=== PATIENT | female | born 1950 | race African-American/Black ===

== ENCOUNTER → 2017-11-16 | Outpatient (CLI) | payer OTHER | END | disposition home or self-care (01) | LOC: PCVCIMAG 13:52 | DX: I21.4 Non-ST elevation (NSTEMI) myocardial infarction (principal); I25.10 Atherosclerotic heart disease of native coronary artery without angina pectoris; I10 Essential (primary) hypertension; E78.00 Pure hypercholesterolemia, unspecified; I42.9 Cardiomyopathy, unspecified; I08.1 Rheumatic disorders of both mitral and tricuspid valves; Z87.891 Personal history of nicotine dependence; Z79.899 Other long term (current) drug therapy | CPT/HCPCS: 80061; 93005; 93306; G0463 ==

== ENCOUNTER → 2018-03-14 | Outpatient (CLI) | payer OTHER ==
--- NOTE | 2018-03-14 14:13 | PCVCIMAG ---
APPROVED REPORT Study performed: 03/14/2018 11:37:19 Exam: Stress Echocardiogram Indication: CAD s/p AR,PCI Patient Location: Echo lab Stress Nurse: Syeda Morocho RN Room #: 2 Status: routine Ht: 5 ft 3 in HR: 58 bpm BP: 128/86 mmHg Rhythm: Sinus Bradycardia Medical History Medical History: CAD s/p AR,stent,mvp,htn Medications: Metoprolol Cardiac Risk Factors: HTN Previous Cardiac Procedures: PCI Pretest Chest Pain Characteristics: No chest pain Exercise History: Physically active Procedure The patient underwent an Exercise Stress Test using the Ivania Protocol. Blood pressure, heart rate, and EKG were monitored. An Echocardiogram was performed by vending machine technician in four stages in quad fashion. At peak stress, four selected images were obtained and placed side by side with resting images for comparison. Stress Test Details Stress Test: Exercise stress testing was performed using a Ivania protocol. HR Resting HR: 58 bpmMax Heart Rate (APMHR): 153 bpm Max HR Achieved: 136 bpmTarget HR (85% APMHR): 130 bpm % of APMHR: 88 Recovery HR: 66 bpm HR response to stress: Normal HR response to stress BP Resting BP: 128/86 mmHg Max BP: 190/96 mmHg Recovery BP: 154/86 mmHg ECG Resting ECG: Sinus Bradycardia Stress ECG: Sinus Rhythm, NSSTT changes Arrhythmia: PVCs,PACs at peak exercise Recovery ECG: Sinus Rhythm Recovery ST Change: Non-ischemic Recovery Arrhythmia: occasional PVCs,PACs Clinical Reason for Termination: Maximal effort Stress Symptoms: fatigue,dyspnea Exercise duration: 7 min 24 sec Highest Stage Achieved: Stage 3: 3.4 mph at 14% grade. Exercise capacity: 10.1 METs Overall Exercise Capacity for Age: Average Scale: Active Angina Score: None No complications. Stress ECG Conclusion The patient exercised according to the IVANIA protocol for 7:24 mins; achieving a work level of 10.1 METS. The resting heart rate of 58 bpm cesar to a maximum heart rate of 136 bpm. This value represent 88% of the maximal, age-predicted heart rate. The resting blood pressure of 128/86 mmHg, cesar to a maximum blood pressure of 190/96mmHg. The exercise test was stopped due to fatigue . Pre-Stress Echo The resting Echocardiogram showed normal left ventricular contractility with an estimated Ejection Fraction of about 55-60%. Normal wall motion in all segments on baseline images. Post-Stress Echo The stress Echocardiogram showed normal left ventricular contractility with an estimated Ejection Fraction of about 65-70%. Normal augmentation of wall motion in all segments on post stress images. Clinical No clinical or ECG evidence for ischemia. Conclusion Clinical Response: Non-ischemic Exercise Capacity: Average Stress ECG Response: Non-ischemic Stress Echo Images: Non-ischemic No clinical, EKG or echocardiographic evidence for ischemia. No echocardiographic evidence for exercise induced ischemia. Normal stress echocardiogram with maximal exercise stress. <Conclusion> No clinical, EKG or echocardiographic evidence for ischemia. No echocardiographic evidence for exercise induced ischemia. Normal stress echocardiogram with maximal exercise stress.
== END | disposition home or self-care (01) ==
LOC: PCVCIMAG 15:43
PROVIDERS: ATTEND Internal Medicine Cardiovascular Disease
DX: I25.10 Atherosclerotic heart disease of native coronary artery without angina pectoris (principal); I10 Essential (primary) hypertension; I21.4 Non-ST elevation (NSTEMI) myocardial infarction; I34.1 Nonrheumatic mitral (valve) prolapse
CPT/HCPCS: 93325; 93351

== ENCOUNTER → 2018-10-20 | Outpatient (CLI) | payer OTHER | END | disposition home or self-care (01) | LOC: PCVCCLINIC 14:14 | PROVIDERS: ATTEND Internal Medicine Cardiovascular Disease | DX: I25.10 Atherosclerotic heart disease of native coronary artery without angina pectoris (principal); I10 Essential (primary) hypertension; I21.4 Non-ST elevation (NSTEMI) myocardial infarction; E78.00 Pure hypercholesterolemia, unspecified | CPT/HCPCS: 36415; 80061; 93005; G0463 ==

== ENCOUNTER → 2019-04-30 | Outpatient (CLI) | payer OTHER ==
--- NOTE | 2019-05-01 13:29 | PCVCIMAG ---
APPROVED REPORT Study performed: 04/30/2019 13:51:33 Exam: Stress Echocardiogram Indication: CAD, Stent Patient Location: Echo lab Stress Nurse: Brandi Pastor RN Status: routine Ht: 5 ft 3 in HR: 82 bpm BP: 140/80 mmHg Rhythm: NSR Medical History Medical History: CAD s/p stent, , Hyperlipidemia, HTN Procedure The patient underwent an Exercise Stress Test using the Rian Protocol. Blood pressure, heart rate, and EKG were monitored. An Echocardiogram was performed by lubrication technician in four stages in quad fashion. At peak stress, four selected images were obtained and placed side by side with resting images for comparison. Stress Test Details Stress Test: Exercise stress testing was performed using a Rian protocol. HR Resting HR: 82 bpmMax Heart Rate (APMHR): 152 bpm Max HR Achieved: 151 bpmTarget HR (85% APMHR): 129 bpm % of APMHR: 99 Recovery HR: 90 bpm HR response to stress: Normal HR response to stress BP Resting BP: 140/80 mmHg Max BP: 246/88 mmHg Recovery BP: 162/80 mmHg BP response to stress: Normal blood pressure response to stress. ECG Resting ECG: Sinus Rhythm Stress ECG: Sinus Rhythm Arrhythmia: VPC's Recovery ECG: Sinus Rhythm Recovery Arrhythmia: VPC Clinical Reason for Termination: Maximal effort Exercise duration: 7 min 21 sec Highest Stage Achieved: Stage 3: 3.4 mph at 14% grade. Exercise capacity: 10.10 METs Overall Exercise Capacity for Age: Normal Pre-Stress Echo The resting Echocardiogram showed normal left ventricular contractility with an estimated Ejection Fraction of about 55-60%. Normal wall motion in all segments on baseline images. Post-Stress Echo The stress Echocardiogram showed normal left ventricular contractility with an estimated Ejection Fraction of about 60-65%. Normal augmentation of wall motion in all segments on post stress images. Clinical No clinical or ECG evidence for ischemia. Conclusion Clinical Response: Non-ischemic Exercise Capacity: Average Stress ECG Response: Non-ischemic Stress Echo Images: Non-ischemic The left ventricle is normal in size. Left ventricular hypertrophy. LVOT rest peak gradient 16.55mmHg. Valsalva gradient 23.02mmHg. Trace tricuspid regurgitation. Pulmonary artery pressure 41mmHg. No other valvular abnormalites noted. Trace pericardial effusion. Other Information Study Quality: Good <Conclusion> The left ventricle is normal in size. Left ventricular hypertrophy. LVOT rest peak gradient 16.55mmHg. Valsalva gradient 23.02mmHg. Trace tricuspid regurgitation. Pulmonary artery pressure 41mmHg. No other valvular abnormalites noted. Trace pericardial effusion.
== END | disposition home or self-care (01) ==
LOC: PCVCIMAG 13:29
PROVIDERS: ATTEND Internal Medicine Cardiovascular Disease
DX: I11.9 Hypertensive heart disease without heart failure (principal); I25.10 Atherosclerotic heart disease of native coronary artery without angina pectoris; E78.5 Hyperlipidemia, unspecified; Z95.5 Presence of coronary angioplasty implant and graft
CPT/HCPCS: 93325; 93351